=== PATIENT | female | born 1940 | race Caucasian/White ===

== ENCOUNTER 2018-03-20 18:49 | Inpatient (IN) | payer MEDICARE, BC ==
--- NOTE | 2018-03-20 19:09 | ED Physician Documentation ---
History of Present Illness - Stated complaint Stated Complaint: FEVER/CHILLS - Chief complaint Chief Complaint: General - History obtained from History obtained from: Patient - History of Present Illness Timing: Other (This is a 77-year-old woman who had an aortic valve replacement in late November of last year at the [facility]. I presume porcine or bovine since she is not on anticoagulation, but she does not know specifically. For the last 6 weeks she is felt sick. Her symptoms have varied but at the outset included lower abdominal pain but she has not had that in about 5 weeks. And she had a nonproductive cough but she related that to increase in her dose of lisinopril. More recently over the last 2 days she has had fevers and shaking chills. She states that she had a fever today up to 105 Fahrenheit, although I asked her if it was 105 or 100.5 and she vacillates. She continues to have a cough, nonproductive. She also has urinary frequency but no dysuria or flank pain. A couple of days after [place] she had an infected molar and was on perioperative antibiotics, the molar was removed.) Review of Systems Constitutional: reports: Fever, Chills, Fatigue Nose: denies: Rhinorrhea / runny nose Cardiac: denies: Chest pain / pressure, Palpitations Respiratory: reports: Cough. denies: Dyspnea GI: denies: Abdominal Pain, Nausea, Vomiting, Diarrhea : reports: Frequency. denies: Dysuria PD PAST MEDICAL HISTORY - Past Medical History Cardiovascular: Hypertension - Past Surgical History Past Surgical History: Yes - Present Medications Home Medications: Ambulatory Orders Medication Instructions Recorded Confirmed Furosemide [Lasix] 40 mg PO DAILY #20 tablet 10/12/14 03/20/18 Lisinopril 40 mg PO BID 10/12/14 03/20/18 Hydrocodone/Acetaminophen [[place] 1 each PO Q6H PRN #15 tablet 08/08/15 03/20/18 5-325 Tablet] Potassium Chloride [K-Dur] 20 meq PO DAILY 08/08/15 03/20/18 - Allergies Allergies/Adverse Reactions: Allergies Allergy/AdvReac Type Severity Reaction Status Date / Time No Known Drug Allergies Allergy Verified 03/20/18 19:04 - Social History Does the pt smoke?: No Smoking Status: Never smoker Does the pt drink ETOH?: Yes Does the pt have substance abuse?: No - POLST Patient has POLST: No PD ED PE NORMAL - Vitals Vital signs reviewed: Yes - General General: Alert and oriented X 3, No acute distress - HEENT HEENT: PERRL, EOMI, Ears normal - Neck Neck: Supple, no meningeal sign, No bony TTP - Cardiac Cardiac: RRR, Other (2/6 blowing decresecndo mmr at [facility]) - Respiratory Respiratory: No respiratory distress, Other (diminished bases L>R) - Abdomen Abdomen: Soft, Non tender - Back Back: No CVA TTP, No spinal TTP - Derm Derm: No rash - Extremities Extremities: No edema, No calf tenderness / cord - Neuro Neuro: Alert and oriented X 3, Normal speech Results - Vitals Vitals: Vital Signs - 24 hr 03/20/18 03/20/18 03/20/18 18:54 20:09 21:04 Temperature 37.0 C 37.2 C 36.5 C Heart Rate 91 76 87 Respiratory 18 18 18 Rate Blood Pressure 157/73 H 127/82 H 142/50 H O2 Saturation 98 98 99 Oxygen O2 Source Room air - Labs Labs: Laboratory Tests 03/20/18 03/20/18 03/20/18 19:30 19:30 19:30 WBC 16.1 H RBC 3.65 L Hgb 11.0 L Hct 32.6 L MCV 89.2 MCH 30.2 MCHC 33.9 RDW 13.3 Plt Count 274 MPV 6.8 L Neut # (Auto) 13.4 H Lymph # (Auto) 1.6 [place] # (Auto) 1.1 H Eos # (Auto) 0.0 Baso # (Auto) 0.1 Absolute Nucleated RBC 0.01 Nucleated RBC % 0.1 ESR 109 H Sodium 133 L Potassium 4.2 Chloride 101 Carbon Dioxide 21 Anion Gap 11.0 BUN 27 H Creatinine 1.1 H Estimated GFR (MDRD) 48 L Glucose 104 H Lactic Acid Calcium 9.4 Total Bilirubin 1.0 AST 34 ALT 35 Alkaline Phosphatase 102 C-Reactive Protein Total Protein 8.3 H Albumin 3.7 Globulin 4.6 H Albumin/Globulin Ratio 0.8 L Lipase 31 Urine Color Urine Clarity Urine pH Ur Specific [place] Urine Protein Urine Glucose (UA) Urine Ketones Urine Occult Blood Urine Nitrite Urine Bilirubin Urine Urobilinogen Ur Leukocyte Esterase Ur Microscopic Review Urine Culture Comments Influenza A (Rapid) Influenza B (Rapid) 03/20/18 03/20/18 03/20/18 19:30 19:30 19:30 WBC RBC Hgb Hct MCV MCH MCHC RDW Plt Count MPV Neut # (Auto) Lymph # (Auto) [place] # (Auto) Eos # (Auto) Baso # (Auto) Absolute Nucleated RBC Nucleated RBC % ESR Sodium Potassium Chloride Carbon Dioxide Anion Gap BUN Creatinine Estimated GFR (MDRD) Glucose Lactic Acid Calcium Total Bilirubin AST ALT Alkaline Phosphatase C-Reactive Protein 13.7 H Total Protein Albumin Globulin Albumin/Globulin Ratio Lipase Urine Color YELLOW Urine Clarity CLEAR Urine pH 5.5 Ur Specific [place] 1.020 Urine Protein NEGATIVE Urine Glucose (UA) NEGATIVE Urine Ketones NEGATIVE Urine Occult Blood TRACE-LYSE Urine Nitrite NEGATIVE Urine Bilirubin NEGATIVE Urine Urobilinogen 1 (NORMAL) Ur Leukocyte Esterase NEGATIVE Ur Microscopic Review NOT INDICATED Urine Culture Comments NOT INDICATED Influenza A (Rapid) Negative Influenza B (Rapid) Negative 03/20/18 19:50 WBC RBC Hgb Hct MCV MCH MCHC RDW Plt Count MPV Neut # (Auto) Lymph # (Auto) [place] # (Auto) Eos # (Auto) Baso # (Auto) Absolute Nucleated RBC Nucleated RBC % ESR Sodium Potassium Chloride Carbon Dioxide Anion Gap BUN Creatinine Estimated GFR (MDRD) Glucose Lactic Acid 1.1 Calcium Total Bilirubin AST ALT Alkaline Phosphatase C-Reactive Protein Total Protein Albumin Globulin Albumin/Globulin Ratio Lipase Urine Color Urine Clarity Urine pH Ur Specific [place] Urine Protein Urine Glucose (UA) Urine Ketones Urine Occult Blood Urine Nitrite Urine Bilirubin Urine Urobilinogen Ur Leukocyte Esterase Ur Microscopic Review Urine Culture Comments Influenza A (Rapid) Influenza B (Rapid) - Rads (name of study) 2v chest Radiology: EMP read contemporaneously (mild bronchial wall thickening, aortic valve replacement.) PD MEDICAL DECISION MAKING - ED course ED course: 77-year-old woman with history of to have her last year presents with progressive illness with fevers and chills after dental work about a month ago. She does have an elevated white blood cell count, sed rate, CRP. This is all concerning for endocarditis. I discussed the case by phone with Dr. Galvan at the [facility] who recommended admission here for monitoring of the blood cultures and a TTE. 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
[2018-03-20 19:36] LABS: BASOPHILS # (AUTO) 0.1 10^3/uL (0.0-0.1); BASOPHILS % (AUTO) 0.5 %; EOSINOPHILS % (AUTO) 0.2 %; LYMPHOCYTES # (AUTO) 1.6 10^3/uL (1.5-3.5); LYMPHOCYTES % (AUTO) 9.9 %; MEAN CORPUSCULAR HEMOGLOBIN 30.2 pg (27.0-31.0); MEAN CORPUSCULAR HGB CONC 33.9 g/dL (32.0-36.0); MEAN CORPUSCULAR VOLUME 89.2 fL (81.0-99.0); MEAN PLATELET VOLUME 6.8 fL (7.9-10.8); MONOCYTES # (AUTO) 1.1 10^3/uL (0.0-1.0); MONOCYTES % (AUTO) 6.6 %; NEUTROPHILS # (AUTO) 13.4 10^3/uL (1.5-6.6); NEUTROPHILS % (AUTO) 82.8 %; PLT - PLATELET COUNT 274 10^3/uL (130-450); RED BLOOD COUNT 3.65 10^6/uL (4.20-5.40); RED CELL DISTRIBUTION WIDTH 13.3 % (12.0-15.0); WHITE BLOOD COUNT 16.1 x10^3/uL (4.8-10.8)
[2018-03-20 19:37] LABS: BILIRUBIN,URINE NEGATIVE (NEGATIVE); GLUCOSE, URINE (UA) NEGATIVE (NEGATIVE); KETONES,URINE (UA) NEGATIVE (NEGATIVE); LEUKOCYTE ESTERASE, URINE NEGATIVE (NEGATIVE); NITRITE,URINE NEGATIVE (NEGATIVE); OCCULT BLOOD,URINE TRACE-LYSE (NEGATIVE); PH,URINE 5.5 PH (5.0-7.5); PROTEIN,URINE NEGATIVE (NEGATIVE); UROBILINOGEN,URINE 1 (NORMAL) E.U./dL (NORMAL)
[2018-03-20 19:40] LABS: CLARITY,URINE CLEAR (CLEAR)
[2018-03-20 19:50] LABS: ALBUMIN 3.7 g/dL (3.2-5.5); ALBUMIN/GLOBULIN RATIO 0.8 (1.0-2.2); CALCIUM 9.4 mg/dL (8.5-10.3); CREATININE 1.1 mg/dL (0.4-1.0); TOTAL PROTEIN 8.3 g/dL (6.7-8.2)
--- NOTE | 2018-03-20 19:53 | XRAY Report ---
Reason: cough Procedure Date: 03/20/2018 Accession Number: [id number] / [id number] Procedure: XR - Chest 2 View X-Ray CPT Code: 58235 FULL RESULT: EXAM: CHEST RADIOGRAPHY EXAM DATE: 03/20/2018 07:38 PM. CLINICAL HISTORY: Cough. COMPARISON: XR CHEST PA AND LAT 05/16/2011 11:44 AM. TECHNIQUE: 2 views. FINDINGS: Lungs/Pleura: No focal opacities evident. Mild bronchial thickening. No pleural effusion. No pneumothorax. Normal volumes. Mediastinum: Heart size upper normal. Aorta is tortuous. Interval placement of aortic valve prosthesis. Other: Degenerative changes of the thoracic spine. IMPRESSION: 1. Mild bronchial thickening which can be seen with bronchitis. No dense consolidation. 2. Interval placement of aortic valve prosthesis. RADIA
[2018-03-20] MEDS ORDERED: SODIUM CHLORIDE FLUSH 0.9% 10 ML SYRINGE IVP PRN (22:20)
[2018-03-20] MEDS ORDERED: SODIUM CHLORIDE 0.9% 1,000 ML IV SCH (23:00)
[2018-03-20] MEDS ORDERED: ACETAMINOPHEN 500 MG TABLET PO STA (23:05)
--- NOTE | 2018-03-20 23:47 | HISTORY & PHYSICAL EXAMINATION ---
Chief Complaint - Chief Complaint Chief Complaint: rigor, fever History of Present Illness - Admitted From Admitted From:: [facility] ED - History Obtained From History obtained from: patient - History of Present Illness HPI Comment/Other: Patient is a 77 y/o female who presented to the ED today with complain of rigors today. She reports a subjective fever as high as 103F at home. She reports a persistent dry cough but add that it has been going on for the past year and that she is on lisinopril. She denies chest pain, RADHA, abd pain, n/v/d. She normally sleeps using 3 pillows. Mainly for comfort than SOB. She does not have any lower extremity edema. She used to be on lasix prior to a TAVR but has since come off it. She underwent a TAVR in November 2017 at the [facility]. Her clinical research tech is Dr Galvan. Her clinical research tech was contacted from the ED and he advised to proceed with a TTE and await blood cultures for now. He advised that patient has known mitral regurgitation with a flailing mitral which should not be mistaken for a vegetation. She was fully awake and oriented X3 at the time of my visit. She was resting comfortably in bed. She denied any other complains or concerns. History - Past Medical History Cardiovascular: reports: Hypertension, Valve disorder (Aortic (s/p TAVR) and Mitral) Endocrine/Autoimmune: reports: Other (one parathyroid nodule extraction) MRSA Hx?: No - Past Surgical History General: reports: Other Ortho: reports: Other (Multiple fractures) Cardiovascular: reports: Valve replacement (TAVR) - Family & Social History Family History Comment/Other: Father: at 87 from natural causes. Mother: at 57 from cerebral hemorrhage. Brother: CABG X5 Living arrangement: At home - Substance History Use: Uses substance without health or social issues: Alcohol (occasionally/socially) - POLST Patient has POLST: Yes POLST Status: Full Code Meds/Allgy - Home Medications Home Medications: Ambulatory Orders Medication Instructions Recorded Confirmed Furosemide [Lasix] 40 mg PO DAILY #20 tablet 10/12/14 03/20/18 Lisinopril 40 mg PO BID 10/12/14 03/20/18 Hydrocodone/Acetaminophen [[place] 1 each PO Q6H PRN #15 tablet 08/08/15 03/20/18 5-325 Tablet] Potassium Chloride [K-Dur] 20 meq PO DAILY 08/08/15 03/20/18 - Allergies Allergies/Adverse Reactions: Allergies Allergy/AdvReac Type Severity Reaction Status Date / Time No Known Drug Allergies Allergy Verified 03/20/18 19:04 Review of Systems - Constitutional Constitutional: reports: Fever (rigors) - Eyes Eyes: denies: Pain, Blurred vision, Dipolpia - Ears, Nose & Throat Ears, Nose & Throat: denies: Ear pain, Hearing loss, Vertigo - Cardiovascular Cariovascular: denies: Irregular heart rate, Chest pain, Edema, Lightheadedness, Syncope, Exertional dyspnea - Respiratory Respiratory: reports: Cough (dry. on lisinopril). denies: Sputum production, Wheezing, Orthopnea, SOB at rest - Gastrointestinal Gastrointestinal: denies: Abdominal pain, Abdominal distention, Constipation, Diarrhea, Nausea, Vomiting - Genitourinary Genitourinary: denies: Dysuria, Frequency, Urgency, Hematuria - Musculoskeletal Musculoskeletal: denies: Muscle pain, Back pain, Muscle aches - Integumentary Integumentary: denies: Rash, Pruritis - Neurological Neurological: denies: General weakness, Focal weakness, Headache, Dizziness - Psychiatric Psychiatric: denies: Depression, Anxiety - Hematologic/Lymphatic Hematologic/Lymphatic: denies: Anemia, Bruising, Petechiae Prior Level of Functionality: Patient is very independent and able to perform activities of daily living Exam - Vital Signs Vital Signs: Vital Signs x48h Temp Pulse Resp BP Pulse Ox 03/20/18 23:00 36.7 C 99 20 136/106 H 03/20/18 21:04 36.5 C 87 18 142/50 H 99 03/20/18 20:09 37.2 C 76 18 127/82 H 98 03/20/18 18:54 37.0 C 91 18 157/73 H 98 - Physical Exam General Appearance: positive: No acute distress, Alert Eyes Bilateral: positive: Normal inspection, PERRL, EOMI ENT: positive: ENT inspection nml, No signs of dehydration Neck: positive: Nml inspection, Thyroid nml, No JVD Respiratory: positive: Chest non-tender, No respiratory distress, Breath sounds nml. negative: Wheezes, Rales, Rhonchi Cardiovascular: positive: Tachycardia, Diastolic murmur Abdomen: positive: Non-tender, No organomegaly, Nml bowel sounds, No distention Skin: positive: Color nml, No rash, Warm, Dry Extremities: positive: Non-tender, Full ROM, Nml appearance, No pedal edema Neurologic/Psychiatric: positive: Oriented x3 Sepsis Event Note (H) - Evaluation Sepsis Documentation Tip Sheet: SIRS. currently working up for sepsis Possible source of Sepsis: positive: Endocarditis - Sepsis Criteria Sepsis Criteria: Recorded Temperature greater than 38.3C or Less than 36C, Recorded Heart Rate greater than 90 bpm, WBC count greater than 12,000 or less than 4000 Conclusion/Plan - Problem List (1) Fever Conclusion/Plan: suspect endocarditis WBC 16, CRP elevated Blood cultures drawn 2D echo ordered Note: Patient has known MR with flailing valve (not vegetation) Will address fever with tylenol Qualifiers: Fever type: due to other condition Qualified Code(s): R50.81 - Fever presenting with conditions classified elsewhere (2) Hypertension Conclusion/Plan: Currently on lisinopril. Will continue Patient complaining of cough Advised to contact her clinical research tech (prescribing physician) for a possible switch to an ARB e.g losartan (3) Aortic regurgitation Conclusion/Plan: s/p TAVR - Lab Results Fish Bones: 03/20/18 19:30 03/20/18 19:30 Core Measures - Anticipated LOS I expect patient to be DC'd or transferred within 96 hours.: Yes - DVT/VTE - Prophylaxis VTE/DVT Device ordered at admit?: Yes VTE/DVT Prophylaxis med ordered at admit?: Yes
[2018-03-21] MEDS: SODIUM CHLORIDE FLUSH 0.9% 10 ML SYRINGE IVP SCH ×3 (00:47→17:56)
[2018-03-21 05:25] LABS: CALCIUM 8.9 mg/dL (8.5-10.3); CREATININE 1.3 mg/dL (0.4-1.0)
[2018-03-21 09:10] LABS: BASOPHILS # (AUTO) 0.1 10^3/uL (0.0-0.1); BASOPHILS % (AUTO) 0.7 %; EOSINOPHILS % (AUTO) 0.4 %; HGB - HEMOGLOBIN 9.6 g/dL (12.0-16.0); LYMPHOCYTES # (AUTO) 1.7 10^3/uL (1.5-3.5); LYMPHOCYTES % (AUTO) 13.5 %; MEAN CORPUSCULAR HEMOGLOBIN 31.1 pg (27.0-31.0); MEAN CORPUSCULAR VOLUME 88.9 fL (81.0-99.0); MEAN PLATELET VOLUME 6.8 fL (7.9-10.8); MONOCYTES # (AUTO) 0.9 10^3/uL (0.0-1.0); MONOCYTES % (AUTO) 7.3 %; NEUTROPHILS # (AUTO) 10.1 10^3/uL (1.5-6.6); NEUTROPHILS % (AUTO) 78.1 %; PLT - PLATELET COUNT 234 10^3/uL (130-450); RED BLOOD COUNT 3.09 10^6/uL (4.20-5.40); RED CELL DISTRIBUTION WIDTH 13.1 % (12.0-15.0); WHITE BLOOD COUNT 12.9 x10^3/uL (4.8-10.8)
[2018-03-21] MEDS: POLYETHYLENE GLYCOL 3350 17 GM PACKET PO SCH (09:15)
[2018-03-21] MEDS: ENOXAPARIN 40 MG/0.4 ML SYRINGE SUBQ SCH (09:15)
[2018-03-21] MEDS: ACETAMINOPHEN 325 MG TABLET PO PRN ×3 (09:40→22:13)
[2018-03-21] MEDS ORDERED: CEFEPIME 2 GM in SODIUM CHLORIDE 0.9% MINIBAG 100 ML IV SCH (10:00)
[2018-03-21] MEDS ORDERED: VANCOMYCIN PER PHARMACY 100 GM in SODIUM CHLORIDE 0.9% 250 ML IV SCH (10:00)
[2018-03-21] MEDS ORDERED: VANCOMYCIN 500 MG VIAL ONE (11:12)
[2018-03-21] MEDS: VANCOMYCIN INJ 1 GM, VANCOMYCIN INJ 500 MG in SODIUM CHLORIDE 0.9% 500 ML IV SCH (11:13)
[2018-03-21] MEDS ORDERED: NAPROXEN 250 MG TABLET PO PRN (11:24)
[2018-03-21] MEDS: ASPIRIN CHEW 81 MG TABLET PO SCH (13:14)
[2018-03-21] MEDS: SODIUM CHLORIDE 0.9% 1,000 ML IV SCH (14:55)
--- NOTE | 2018-03-21 16:13 | PROVIDER PROGRESS NOTE ---
Assessment/Plan - Problem List (1) Gram-positive cocci bacteremia Assessment/Plan: The patient had recent dental surgery, a molar was removed. She does report being on antibiotics for 5 days after the extraction and "a huge dose of something right before". She is now growing 4 out of 4 blood cultures with GPC. Will start iv antibiotics using Vanco and Zosyn. The Echo was done and a vegetation cannot be ruled out, she needs a JANEL for better visualization. There is no aortic regurg or paravalvular leak seen on the Echo, but the systolic gradient through the tissue leaflets is excessive, suggesting a problem, like obstruction from a vegetation on a leaflet impeding forward flow. I have reached out to to have her transferred to her Interventional TAVR [facility] there. The Echo images were pushed. She has been accepted in transfer by Dr Clarisa Galvan, but there are no beds there open currently. He advised using Vanco and Zosyn. The plan is for transfer tomorrow. Will draw daily blood cultures since these will need to be followed. The patient was updated with this plan and is very appreciative to be going to her TAVR center. (2) S/P TAVR (transcatheter aortic valve replacement) Assessment/Plan: The Echo was done today and a vegetation cannot be ruled out on the aortic valve due to incomplete clear visualization of the bioprosthetic leaflets; she needs a JANEL for better visualization. There is no aortic regurg or paravalvular leak of the TAVR seen on the Echo, but the systolic gradient through the tissue leaflets is excessive, suggesting a problem, like obstruction from a vegetation on a leaflet impeding forward flow. I have reached out to and she has been accepted in transfer by Dr Clarisa Galvan, but there are no beds there open currently. The plan is for transfer tomorrow. The patient was updated with this plan and is very appreciative to be going to her TAVR center. Continue daily ASA. (3) Junctional rhythm Assessment/Plan: Telemetry shows an intermittent junctional rhythm with loss of P waves, at a stable HR of 60's. No drop in BP or compliant of dizziness. It is unknown if she has had this in her past. This could be a sign of infection spreading to the crux of the heart near the AV node, related to the TAVR ring. A JANEL is needed to visualize that area. Continue telemetry. Avoid B-blockers, Cardizem, Verapamil or Dig. Will check EKG to document. If she has more of this rhythm or gets symptomatic from it, will move her to the ICU, place topical Zoll pacer patches on standby for percutaneous pacing, and she would need urgent transfer to the CCU. (4) Anemia Assessment/Plan: Since presenting to the ER, her Hgb has dropped from 11 to 9, with only 6 hours of iv hydration at 75 cc/hr. This is of concern since she could have hemolysis o f RBCs related to an infected or stenotic TAVR aortic valve. Will evaluate guiac stool, Iron panel, B12 and Folate levels. Replace if low. Monitor CBC daily. (5) ERICA (acute kidney injury) Assessment/Plan: Most likely this is from volume depletion secondary to fever, consider myoglobin-induce ERICA if she has hemolysis (see above). Will start iv hydration, since LVEF is normal on Echo done today. Monitor BMP daily. - Current Meds Current Meds: Current Medications Generic Name Dose Route Start Last Admin Trade Name Freq PRN Reason Stop Dose Admin Acetaminophen 650 mg 03/20/18 22:20 03/21/18 09:40 Tylenol PO 650 mg Q6HR PRN Administration Pain 1 to 4 Aspirin 81 mg 03/21/18 12:00 03/21/18 13:14 [place] Aspirin PO 81 mg DAILY DAYNA Administration Enoxaparin Sodium 40 mg 03/21/18 09:00 03/21/18 09:15 Lovenox SUBQ 40 mg DAILY DAYNA Administration Cefepime HCl 2 gm/ Sodium 100 mls @ 200 mls/hr 03/21/18 10:00 03/21/18 10:30 Chloride IV Infused Q12H DAYNA Infusion Vancomycin HCl 1 gm/ 500 mls @ 250 mls/hr 03/21/18 11:00 03/21/18 13:13 Vancomycin HCl 500 mg/ Sodium IV Infused Chloride Q24H DAYNA Infusion Sodium Chloride 1,000 mls @ 100 mls/hr 03/21/18 13:32 03/21/18 14:55 Normal Saline 0.9% IV 100 mls/hr .Q10H DAYNA Administration Polyethylene Glycol 17 gm 03/21/18 09:00 03/21/18 09:15 Miralax PO Not Given DAILY DAYNA Sodium Chloride 10 ml 03/21/18 01:00 03/21/18 09:15 Normal Saline Flush 0.9% IVP Not Given 0100,0900,1700 DAYNA - Lab Result Lab results reviewed: Yes Fish Bone Diagrams: 03/21/18 09:05 03/21/18 04:58 - EKG Results EKG Interpreted Independently: Yes EKG Comparison: Changed from prior EKG EKG Findings: NSR, 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 - Additional Planning My Orders: My Active Orders 03/21/18 10:00 Cefepime 2 gm Sodium Chloride 0.9% Minibag [Normal Saline 0.9% Minibag] 100 ml IV Q12H 03/21/18 11:00 Vancomycin Inj [Vancomycin] 1 gm Vancomycin Inj 500 mg Sodium Chloride 0.9% [Normal Saline 0.9%] 500 ml IV Q24H 03/21/18 11:24 Naproxen [Naprosyn] 250 mg PO DAILY PRN 03/21/18 12:00 Aspirin Chewable [[facility] [place] Aspirin] 81 mg PO DAILY 03/21/18 13:32 Sodium Chloride 0.9% [Normal Saline 0.9%] 1,000 ml IV 100 mls/hr 03/21/18 17:00 Saccharomyces Boulardii [Florastor] 250 mg PO BIDWM 03/21/18 19:00 CULTURE, BLOOD #1 [RM] Routine 03/21/18 Lunch Full Liquid Diet [DIET] 03/22/18 09:00 CULTURE, BLOOD #2 [RM] DAILY Subjective - Subjective Patient Reports: Other (Feeling rigors and chills, then hot and needed a ice pack.) Objective Vital Signs: Vital Signs - 24 hr 03/20/18 03/20/18 03/20/18 18:54 20:09 21:04 Temperature 37.0 C 37.2 C 36.5 C Heart Rate 91 76 87 Heart Rate [ Brachial] Respiratory 18 18 18 Rate Blood Pressure 157/73 H 127/82 H 142/50 H Blood Pressure [Left Brachial artery] Blood Pressure [Right Brachial artery] O2 Saturation 98 98 99 03/20/18 03/21/18 03/21/18 23:00 00:00 01:30 Temperature 36.7 C 37.6 C H Heart Rate 99 Heart Rate [ 114 H 98 Brachial] Respiratory 20 20 Rate Blood Pressure 136/106 H Blood Pressure [Left Brachial artery] Blood Pressure 120/82 H [Right Brachial artery] O2 Saturation 93 03/21/18 03/21/18 03/21/18 04:22 04:56 08:00 Temperature 37.2 C 37.0 C 36.6 C Heart Rate Heart Rate [ 77 68 Brachial] Respiratory 20 18 Rate Blood Pressure Blood Pressure [Left Brachial artery] Blood Pressure 120/87 H 118/58 L [Right Brachial artery] O2 Saturation 97 98 03/21/18 03/21/18 09:30 13:19 Temperature 37.2 C 36.8 C Heart Rate Heart Rate [ 76 Brachial] Respiratory 18 Rate Blood Pressure Blood Pressure 113/66 [Left Brachial artery] Blood Pressure [Right Brachial artery] O2 Saturation 98 Oxygen O2 Source Room air I&O (Last 24 Hrs): Intake and Output Totals x24h 03/19/18 03/20/18 03/21/18 23:59 23:59 23:59 Intake Total 2017.00 Output Total 1350 Balance 667.00 General: Alert, Oriented x3 HEENT: Mucous membr. moist/pink, Other (Cheeks flushed) Neck: Supple, No JVD, Other (No carotid bruit) Neuro: Alert, Non Focal Cardiovascular: Regular rate, Other (Very soft S1 and S2, 2/6 systolic murmur at base, no gallop or RV heave.) Respiratory: No respiratory distress, Breath sounds nml Abdomen: Soft, No tenderness, Other (Obese with pannus) Extremities: No cyanosis, No edema - Results Results: Laboratory Results WBC 12.9 x10^3/uL (4.8-10.8) H 03/21/18 09:05 RBC 3.09 10^6/uL (4.20-5.40) L 03/21/18 09:05 Hgb 9.6 g/dL (12.0-16.0) L 03/21/18 09:05 Hct 27.5 % (37.0-47.0) L 03/21/18 09:05 MCV 88.9 fL (81.0-99.0) 03/21/18 09:05 MCH 31.1 pg (27.0-31.0) H 03/21/18 09:05 MCHC 35.0 g/dL (32.0-36.0) 03/21/18 09:05 RDW 13.1 % (12.0-15.0) 03/21/18 09:05 Plt Count 234 10^3/uL (130-450) 03/21/18 09:05 MPV 6.8 fL (7.9-10.8) L 03/21/18 09:05 Neut # (Auto) 10.1 10^3/uL (1.5-6.6) H 03/21/18 09:05 Lymph # (Auto) 1.7 10^3/uL (1.5-3.5) 03/21/18 09:05 [place] # (Auto) 0.9 10^3/uL (0.0-1.0) 03/21/18 09:05 Eos # (Auto) 0.0 10^3/uL (0.0-0.7) 03/21/18 09:05 Baso # (Auto) 0.1 10^3/uL (0.0-0.1) 03/21/18 09:05 Absolute Nucleated RBC 0.00 x10^3/uL 03/21/18 09:05 Nucleated RBC % 0.0 /100WBC 03/21/18 09:05 ESR > 140 mm/Hr (0-30) H 03/21/18 09:05 Sodium 134 mmol/L (135-145) L 03/21/18 04:58 Potassium 4.1 mmol/L (3.5-5.0) 03/21/18 04:58 Chloride 102 mmol/L (101-111) 03/21/18 04:58 Carbon Dioxide 21 mmol/L (21-32) 03/21/18 04:58 Anion Gap 11.0 (6-13) 03/21/18 04:58 BUN 27 mg/dL (6-20) H 03/21/18 04:58 Creatinine 1.3 mg/dL (0.4-1.0) H 03/21/18 04:58 Estimated GFR (MDRD) 40 (>89) L 03/21/18 04:58 Glucose 117 mg/dL (70-100) H 03/21/18 04:58 Lactic Acid 1.1 mmol/L (0.5-2.2) 03/20/18 19:50 Calcium 8.9 mg/dL (8.5-10.3) 03/21/18 04:58 Total Bilirubin 1.0 mg/dL (0.2-1.0) 03/20/18 19:30 AST 34 IU/L (10-42) 03/20/18 19:30 ALT 35 IU/L (10-60) 03/20/18 19:30 Alkaline Phosphatase 102 IU/L (42-121) 03/20/18 19:30 C-Reactive Protein 13.4 mg/dL (0-1.0) H 03/21/18 09:05 Total Protein 8.3 g/dL (6.7-8.2) H 03/20/18 19:30 Albumin 3.7 g/dL (3.2-5.5) 03/20/18 19:30 Globulin 4.6 g/dL (2.1-4.2) H 03/20/18 19:30 Albumin/Globulin Ratio 0.8 (1.0-2.2) L 03/20/18 19:30 Lipase 31 U/L (22-51) 03/20/18 19:30 Urine Color YELLOW 03/20/18 19:30 Urine Clarity CLEAR (CLEAR) 03/20/18 19:30 Urine pH 5.5 PH (5.0-7.5) 03/20/18 19:30 Ur Specific [place] 1.020 (1.002-1.030) 03/20/18 19:30 Urine Protein NEGATIVE mg/dL (NEGATIVE) 03/20/18 19:30 Urine Glucose (UA) NEGATIVE mg/dL (NEGATIVE) 03/20/18 19:30 Urine Ketones NEGATIVE mg/dL (NEGATIVE) 03/20/18 19:30 Urine Occult Blood TRACE-LYSE (NEGATIVE) 03/20/18 19:30 Urine Nitrite NEGATIVE (NEGATIVE) 03/20/18 19:30 Urine Bilirubin NEGATIVE (NEGATIVE) 03/20/18 19:30 Urine Urobilinogen 1 (NORMAL) E.U./dL (NORMAL) 03/20/18 19:30 Ur Leukocyte Esterase NEGATIVE (NEGATIVE) 03/20/18 19:30 Ur Microscopic Review NOT INDICATED 03/20/18 19:30 Urine Culture Comments NOT INDICATED 03/20/18 19:30 Influenza A (Rapid) Negative (Negative) 03/20/18 19:30 Influenza B (Rapid) Negative (Negative) 03/20/18 19:30 Sepsis Event Note (H) - Evaluation Possible source of Sepsis: positive: Endocarditis - Sepsis Criteria Sepsis Criteria: Recorded Temperature greater than 38.3C or Less than 36C, Recorded Heart Rate greater than 90 bpm, WBC count greater than 12,000 or less than 4000
[2018-03-21] MEDS: PIPERACILLIN/TAZOBACTAM 3.375 GM in SODIUM CHLORIDE 0.9% MINIBAG 100 ML IV SCH (18:03)
[2018-03-21] MEDS: SACCHAROMYCES BOULARDII 250 MG CAPSULE PO SCH (18:03)
[2018-03-22] MEDS: PIPERACILLIN/TAZOBACTAM 3.375 GM in SODIUM CHLORIDE 0.9% MINIBAG 100 ML IV SCH ×4 (00:11→17:05)
[2018-03-22] MEDS: SODIUM CHLORIDE 0.9% 1,000 ML IV SCH ×2 (01:13→10:26)
[2018-03-22] MEDS: SODIUM CHLORIDE FLUSH 0.9% 10 ML SYRINGE IVP SCH ×3 (01:14→20:24)
[2018-03-22] MEDS: ACETAMINOPHEN 325 MG TABLET PO PRN ×4 (04:28→21:34)
[2018-03-22 05:54] LABS: BASOPHILS # (AUTO) 0.1 10^3/uL (0.0-0.1); BASOPHILS % (AUTO) 0.7 %; EOSINOPHILS # (AUTO) 0.2 10^3/uL (0.0-0.7); EOSINOPHILS % (AUTO) 1.7 %; HGB - HEMOGLOBIN 8.5 g/dL (12.0-16.0); LYMPHOCYTES # (AUTO) 1.5 10^3/uL (1.5-3.5); LYMPHOCYTES % (AUTO) 15.5 %; MEAN CORPUSCULAR HEMOGLOBIN 30.6 pg (27.0-31.0); MEAN CORPUSCULAR HGB CONC 34.2 g/dL (32.0-36.0); MEAN CORPUSCULAR VOLUME 89.6 fL (81.0-99.0); MEAN PLATELET VOLUME 6.9 fL (7.9-10.8); MONOCYTES # (AUTO) 0.9 10^3/uL (0.0-1.0); MONOCYTES % (AUTO) 9.3 %; NEUTROPHILS % (AUTO) 72.8 %; PLT - PLATELET COUNT 206 10^3/uL (130-450); RED BLOOD COUNT 2.78 10^6/uL (4.20-5.40); RED CELL DISTRIBUTION WIDTH 13.2 % (12.0-15.0); WHITE BLOOD COUNT 9.6 x10^3/uL (4.8-10.8)
[2018-03-22 06:20] LABS: CALCIUM 8.3 mg/dL (8.5-10.3); CREATININE 0.9 mg/dL (0.4-1.0)
[2018-03-22 06:33] LABS: FOLATE 11.52 ng/mL (5.90 - >24.8)
[2018-03-22] MEDS: ENOXAPARIN 40 MG/0.4 ML SYRINGE SUBQ SCH (08:21)
[2018-03-22] MEDS: SACCHAROMYCES BOULARDII 250 MG CAPSULE PO SCH ×2 (08:21→17:05)
[2018-03-22] MEDS: POLYETHYLENE GLYCOL 3350 17 GM PACKET PO SCH (08:21)
[2018-03-22] MEDS: ASPIRIN CHEW 81 MG TABLET PO SCH (08:21)
[2018-03-22] MEDS: VANCOMYCIN INJ 1 GM, VANCOMYCIN INJ 500 MG in SODIUM CHLORIDE 0.9% 500 ML IV SCH (10:26)
--- NOTE | 2018-03-22 19:28 | PROVIDER PROGRESS NOTE ---
Subjective - Prog Note Date Prog Note Date: 03/22/18 Prog Note Time: 19:24 - Subjective Subjective: no cp. she is sob and worried about her diuretics she took before her surgery. should she have them now? Current Medications - Current Medications Current Medications: Active Medications Acetaminophen (Tylenol) 650 mg PO Q4HR PRN PRN Reason: Pain 1 to 4 Last Admin: 03/22/18 17:30 Dose: 650 mg Aspirin ([place] Dann Aspirin) 81 mg PO DAILY [facility] Last Admin: 03/22/18 08:21 Dose: 81 mg Enoxaparin Sodium (Lovenox) 40 mg SUBQ DAILY [facility] Last Admin: 03/22/18 08:21 Dose: 40 mg Vancomycin HCl 1 gm/Vancomycin HCl 500 mg/ Sodium Chloride 500 mls @ 250 mls/hr IV Q24H [facility] Last Infusion: 03/22/18 12:27 Dose: Infused Sodium Chloride (Normal Saline 0.9%) 1,000 mls @ 100 mls/hr IV .Q10H [facility] Last Infusion: 03/22/18 17:05 Dose: 0 mls/hr Piperacillin Sod/Tazobactam (Sod 3.375 gm/ Sodium Chloride) 100 mls @ 200 mls/hr IV Q6H [facility] Last Admin: 03/22/18 17:05 Dose: 200 mls/hr Naproxen (Naprosyn) 250 mg PO DAILY PRN PRN Reason: PAIN Polyethylene Glycol (Miralax) 17 gm PO DAILY [facility] Last Admin: 03/22/18 08:21 Dose: 17 gm Saccharomyces Boulardii (Florastor) 250 mg PO BIDWM [facility] Last Admin: 03/22/18 17:05 Dose: 250 mg Sodium Chloride (Normal Saline Flush 0.9%) 10 ml IVP PRN PRN PRN Reason: NEEDED PER PROVIDER ORDERS Sodium Chloride (Normal Saline Flush 0.9%) 10 ml IVP 0100,0900,1700 [facility] Last Admin: 03/22/18 08:21 Dose: 10 ml Lisinopril 40 mg PO BID 10/12/14 Acetaminophen 500 mg PO DAILY PRN 03/21/18 Aspirin 81 mg PO DAILY 03/21/18 Naproxen 250 mg PO DAILY PRN 03/21/18 Objective - Vital Signs/Intake & Output Reviewed Vital Signs: Yes Vital Signs: Vital Signs x48h Temp Pulse Resp BP Pulse Ox 03/22/18 15:45 36.5 C 70 20 127/65 98 03/22/18 11:45 36.0 C L 84 20 115/58 L 98 Intake & Output: Intake & Output 03/19/18 03/20/18 03/21/18 03/22/18 23:59 23:59 23:59 23:59 Intake Total 3130.333 3681.667 Output Total 1625 2225 Balance 6113.321 1263.667 - Objective General Appearance: positive: No acute distress, Alert, Other (sitting up in chair eating.) Eyes Bilateral: positive: PERRL ENT: positive: Pharynx nml Neck: positive: Thyroid nml Respiratory: positive: Chest non-tender. negative: Wheezes, Rales, Rhonchi Cardiovascular: positive: Systolic murmur. negative: Regular rate & rhythm, Gallop/S4, Friction rub Abdomen: positive: Non-tender, No organomegaly, Nml bowel sounds, No distention Skin: positive: Warm, Dry Extremities: positive: Full ROM, No pedal edema Neurologic/Psychiatric: positive: Oriented x3, CN's nml (2-12), Motor nml - Lab Results Fish Bones: 03/22/18 05:33 03/22/18 05:33 Other Labs: Lab Results x24hrs 03/22/18 03/22/18 03/22/18 Range/Units 05:33 05:33 05:33 WBC 9.6 (4.8-10.8) x10^3/uL RBC 2.78 L (4.20-5.40) 10^6/uL Hgb 8.5 L (12.0-16.0) g/dL Hct 24.9 L (37.0-47.0) % MCV 89.6 (81.0-99.0) fL MCH 30.6 (27.0-31.0) pg MCHC 34.2 (32.0-36.0) g/dL RDW 13.2 (12.0-15.0) % Plt Count 206 (130-450) 10^3/uL MPV 6.9 L (7.9-10.8) fL Neut # (Auto) 7.0 H (1.5-6.6) 10^3/uL Lymph # (Auto) 1.5 (1.5-3.5) 10^3/uL [place] # (Auto) 0.9 (0.0-1.0) 10^3/uL Eos # (Auto) 0.2 (0.0-0.7) 10^3/uL Baso # (Auto) 0.1 (0.0-0.1) 10^3/uL Absolute Nucleated RBC 0.00 x10^3/uL Nucleated RBC % 0.0 /100WBC Sodium 134 L (135-145) mmol/L Potassium 3.8 (3.5-5.0) mmol/L Chloride 107 (101-111) mmol/L Carbon Dioxide 21 (21-32) mmol/L Anion Gap 6.0 (6-13) BUN 15 (6-20) mg/dL Creatinine 0.9 (0.4-1.0) mg/dL Estimated GFR (MDRD) 61 L (>89) Glucose 100 (70-100) mg/dL Calcium 8.3 L (8.5-10.3) mg/dL Iron 18 L (28-170) ug/dL TIBC 265 (250-450) ug/dL % Saturation 7 L (20-50) % Transferrin 189 L (192-382) mg/dL Vitamin B12 961 H (180-914) pg/mL Folate 11.52 (5.90 - >24.8) ng/mL ABX Reporting Has patient been on IV antibiotics over the past 48 hours?: Yes Sepsis Event Note (H) - Evaluation Possible source of Sepsis: positive: Endocarditis - Sepsis Criteria Sepsis Criteria: Recorded Temperature greater than 38.3C or Less than 36C, Recorded Heart Rate greater than 90 bpm, WBC count greater than 12,000 or less than 4000 Assessment/Plan - Problem List (1) Gram-positive cocci bacteremia Impression: In a patient who has a previous JULIETTE, fever to 38.8, and 4 out of 4 bottles for gram-positive cocci in pairs and chains. We must assume she has endocarditis but we do not have capability to do transesophageal echo. Because of the arrhythmias, I wonder if her mitral valve i s involved not the aortic valve this time. I have spoken to [facility] today. They accepted her yesterday, and reaccepted this morning. I have updated them on her arrhythmias, and blood cultures. They are waiting for a bed to open up. She will be a direct admission to CCU. Dr. Gastelum has accepted her. (2) S/P TAVR (transcatheter aortic valve replacement) Impression: The Echo was done 03/21 and a vegetation cannot be ruled out on the aortic valve due to incomplete clear visualization of the bioprosthetic leaflets; she needs a JANEL for better visualization. There is no aortic regurg or paravalvular leak of the TAVR seen on the Echo, but the systolic gradient through the tissue leaflets is excessive, suggesting a problem, like obstruction from a vegetation on a leaflet impeding forward flow. She is 3 liters positive but no CHF on exam. contacted 03/21 and 03/22 and she has been accepted in transfer by Dr Clarisa Galvan, as well as Dr. Gastelum today but there are no beds there open currently. The plan is for transfer as soon as bed available. The patient was updated with this plan and is very appreciative to be going to her TAVR center. Continue daily ASA. Stop IVF. (3) Junctional rhythm Assessment/Plan: Telemetry shows an intermittent junctional rhythm with loss of P waves, at a sta ble HR of 60's. No drop in BP or compliant of dizziness. It is unknown if she has had this in her past. Today sinus pause of 1.2 seconds. twice. no symptoms. BP stable. This could be a sign of infection spreading to the crux of the heart near the AV node, related to the TAVR ring. A JANEL is needed to visualize that area. Continue telemetry. Avoid B-blockers, Cardizem, Verapamil or Dig. Will check EKG to document. If she has more of this rhythm or gets symptomatic from it, will move her to the ICU, place topical Zoll pacer patches on standby for percutaneous pacing, and she would need urgent transfer to the CCU. (4) Anemia Assessment/Plan: Since presenting to the ER, her Hgb has dropped from 11 to 9, with only 6 hours of iv hydration at 75 cc/hr. This is of concern since she could have hemolysis of RBCs related to an infected or stenotic TAVR aortic valve. Laboratory Tests 03/22/18 03/22/18 03/22/18 05:33 05:33 05:33 Hgb 8.5 L Iron 18 L TIBC 265 % Saturation 7 L Transferrin 189 L Vitamin B12 961 H Folate 11.52 No retic count.
--- NOTE | 2018-03-22 22:14 | DISCHARGE SUMMARY ---
Discharge Summary Admit Date: 03/20/18 Discharge Date: 03/22/18 Discharging Provider: Dr. Barry Cisneros Primary Care Provider: Glynn Barron Code Status: Attempt Resuscitation Condition at Discharge: Stable Discharge Disposition: 02 Transfer Acute Care Hosp - DIAGNOSES Admission Diagnoses: Bacteremia, acute kidney injury, status post T AVR, fever with rigors Discharge Diagnoses with Status of Each Condition: 1.Infective endocarditis Patient appears to be clinically stable with relatively normal vital signs, and afebrile for the past 24 hours. She does have concerning findings on her echocardiogram which was read as inconclusive with respect to ruling out vegetations with some discrepancy in systolic flow leaving open the possibility of obstruction secondary to vegetation with recommendation to correlate clinically. Given her history of recent T AVR, followed by recent dental surgery, with elevated white count, fevers on admission, and violent rigors, infective endocarditis must be highly considered on the differential and she certainly meets criteria for the indication for a JANEL and to be followed by a cardiovascular team and likely infectious disease. She has had 4 blood cultures which have grown positive for alphahemolytic Streptococcus with final species identification pending. This was confirmed on both right and the left extremity as the source of blood culture collection. She has been accepted for transfer at the CV ICU at [facility] in [place]. 2.Junctional rhythm She has had periodic junctional rhythm with loss of P waves, with heart rates typically stable in the 60s however in the past 18 hours or so she has had a few brief episodes of pauses of less than 2 seconds. It is unclear if this has been noted in the past. She has been monitored here on telemetry and we have avoided beta blockers, Cardizem, or digoxin.She may need to have percutaneous pacing at the accepting facility if this continues. 3.Anemia Patient's labs are remarkable for a drop in hemoglobin from 11.0 on admission to 8.5 within 2 days without any bleeding. Her IV fluid amount does not correlate to this level of a drop and dilution is not likely as the only cause. Her labs today are indicative of both iron deficiency as well as B12 deficiency, and this should be supplemented however would not explain such a sudden drop. Would recommend further follow-up and monitoring at the accepting facility. - HPI History of Present Illness: The following is the HPI from the admitting physician: "Patient is a 77 y/o female who presented to the ED today with complain of rigors today. She reports a subjective fever as high as 103F at home. She reports a persistent dry cough but add that it has been going on for the past year and that she is on lisinopril. She denies chest pain, RADHA, abd pain, n/v/d. She normally sleeps using 3 pillows. Mainly for comfort than SOB. She does not have any lower extremity edema. She used to be on lasix prior to a TAVR but has since come off it. She underwent a TAVR in November 2017 at the [facility]. Her adjustment clerk is Dr Galvan. Her adjustment clerk was contacted from the ED and he advised to proceed with a TTE and await blood cultures for now. He advised that patient has known mitral regurgitation with a flailing mitral which should not be mistaken for a vegetation. She was fully awake and oriented X3 at the time of my visit. She was resting comfortably in bed. She denied any other complains or concerns." Dr. Lakhani - HOSPITAL COURSE Hospital Course: As stated above, patient was admitted with initially fever, elevated white blood cell counts,Initially 16.1 down to 9.6 from the date of admission. Also, she has been afebrile since 03/21/2018 at which point she had a T-max on admission of 38.8 C.Since the patient was admitted, she has been on IV vancomycin and Zosyn and she has improved clinically with the only exceptions being the junctional rhythm as discussed above. The findings on the echocardiogram, also concerning for infective endocarditis with patient being a candidate for transfer to facility with capability for JANEL as well as cardiology service and infectious disease service. She will be transferred to [facility] in [place] on 03/22/2018. - ALLERGIES Allergies/Adverse Reactions: Allergies Allergy/AdvReac Type Severity Reaction Status Date / Time lisinopril AdvReac Severe COUGH Verified 03/21/18 11:29 - MEDICATIONS Home Medications: Ambulatory Orders Medication Instructions Recorded Confirmed Lisinopril 40 mg PO BID 10/12/14 03/20/18 Acetaminophen 500 mg PO DAILY PRN 03/21/18 03/21/18 Aspirin 81 mg PO DAILY 03/21/18 03/21/18 Naproxen 250 mg PO DAILY PRN 03/21/18 03/21/18 - PHYSICAL EXAM AT DISCHARGE General Appearance: positive: No acute distress - LABS Result Diagrams: 03/22/18 05:33 03/22/18 05:33 - SEPSIS Possible source of Sepsis: Endocarditis Sepsis Criteria: Recorded Temperature greater than 38.3C or Less than 36C, Recorded Heart Rate greater than 90 bpm, WBC count greater than 12,000 or less than 4000 - TIME SPENT Time Spent in Discharge (Minutes): 31
[2018-03-22 22:56] VITALS: BP 138/70
== END 2018-03-22 22:55 | disposition short-term general hospital (02) | DRG 314 ==
LOC: ED 18:49 → MS2 22:20
PROVIDERS: ADMIT Internal Medicine; ATTEND Family Medicine Sports Medicine
DX: T82.6XXA Infection and inflammatory reaction due to cardiac valve prosthesis, initial encounter (principal); I33.0 Acute and subacute infective endocarditis; Z95.2 Presence of prosthetic heart valve; A40.8 Other streptococcal sepsis; Z86.19 Personal history of other infectious and parasitic diseases; R65.20 Severe sepsis without septic shock; N17.9 Acute kidney failure, unspecified; Y71.2 Prosthetic and other implants, materials and accessory cardiovascular devices associated with adverse incidents; Y83.8 Other surgical procedures as the cause of abnormal reaction of the patient, or of later complication, without mention of misadventure at the time of the procedure; Y83.2 Surgical operation with anastomosis, bypass or graft as the cause of abnormal reaction of the patient, or of later complication, without mention of misadventure at the time of the procedure; D50.9 Iron deficiency anemia, unspecified; E53.8 Deficiency of other specified B group vitamins; I49.8 Other specified cardiac arrhythmias; I07.1 Rheumatic tricuspid insufficiency; I10 Essential (primary) hypertension; E86.9 Volume depletion, unspecified; Z95.3 Presence of xenogenic heart valve; Z79.891 Long term (current) use of opiate analgesic
CPT/HCPCS: 36415; 71046; 80048; 80053; 80202; 81001; 81003; 81599; 82272; 82607; 82746; 83540; 83605; 83690; 84466; 85025; 85651; 86140; 87040; 87077; 87086; 87181; 87275; 87276; 93005; 93306; 99283; 99284

== ENCOUNTER 2018-03-22 22:57 | Outpatient (CLI) | payer MEDICARE, BC | END 2018-03-22 22:58 | disposition short-term general hospital (02) | LOC: EMS 22:57 | PROVIDERS: ATTEND Surgery | DX: I38 Endocarditis, valve unspecified (principal) | CPT/HCPCS: A0170; A0425; A0426; 81599 ==

== ENCOUNTER 2018-04-10 19:21 | Outpatient (CLI) | payer MEDICARE, BC | END 2018-04-10 19:22 | disposition critical access hospital (66) | LOC: EMS 19:21 | PROVIDERS: ATTEND Surgery | DX: R42 Dizziness and giddiness (principal) | CPT/HCPCS: A0425; A0429 ==

== ENCOUNTER 2018-04-10 19:48 | Emergency (ER) | payer MEDICARE, BC ==
--- NOTE | 2018-04-10 20:37 | ED Physician Documentation ---
History of Present Illness - Stated complaint Stated Complaint: DIZZY, SOA WITH EXERTION - Chief complaint Chief Complaint: Neuro - History obtained from History obtained from: Patient - History of Present Illness Timing: Today - Additonal information Additional information: 77-year-old female with a history of aortic stenosis who has had a Rodrick procedure and placement of an aortic valve. Has developed endocarditis and she is on a course of antibiotic she is on her second week of gentamicin and vancomycin. Today on the way into the [facility] for her antibiotic infusion she felt better than usual and was able to use her ski poles to walk into the [facility] clinic from a car. She is usually uses a walker and wheelchair. Today she felt well enough to do this however she did develop some shortness of breath by the time she got into the hospital. When she got home from the [facility] clinic she was sitting on her couch when she developed a sense of dizziness and lightheadedness. This lasted for almost 10- 15 minutes. She had some dimming of her vision and she is come to the hospital by ambulance. Her symptoms have resolved and she feels normal now Review of Systems Constitutional: denies: Fever, Chills, Myalgias Eyes: reports: Decreased vision (transient with this episode) Ears: denies: Ear pain Nose: denies: Rhinorrhea / runny nose, Congestion Throat: denies: Sore throat Cardiac: denies: Chest pain / pressure, Palpitations, Pedal edema, Calf pain Respiratory: reports: Dyspnea. denies: Cough, Hemoptysis, Wheezing GI: denies: Abdominal Pain, Nausea, Vomiting : denies: Dysuria, Frequency Skin: denies: Rash Musculoskeletal: denies: Neck pain, Back pain, Extremity pain Neurologic: denies: Generalized weakness, Focal weakness, Numbness PD PAST MEDICAL HISTORY - Past Medical History Cardiovascular: Hypertension, Valve disorder Endocrine/Autoimmune: Other - Past Surgical History Past Surgical History: Yes General: Other Ortho: Other Cardiovascular: Valve replacement - Present Medications Home Medications: Ambulatory Orders Medication Instructions Recorded Confirmed Aspirin 81 mg PO DAILY 03/21/18 04/13/18 Losartan [Cozaar] 75 mg PO DAILY 03/28/18 04/13/18 - Allergies Allergies/Adverse Reactions: Allergies Allergy/AdvReac Type Severity Reaction Status Date / Time lisinopril AdvReac Severe COUGH Verified 04/13/18 10:10 amlodipine AdvReac Dizziness Verified 04/13/18 10:10 - Social History Does the pt smoke?: No Smoking Status: Never smoker Does the pt drink ETOH?: Yes Does the pt have substance abuse?: No - POLST Patient has POLST: Yes POLST Status: Full Code PD ED PE NORMAL - Vitals Vital signs reviewed: Yes (hypertensive ) - General General: Alert and oriented X 3, No acute distress, Well developed/nourished - HEENT HEENT: Atraumatic, PERRL, EOMI - Neck Neck: Supple, no meningeal sign, No bony TTP - Cardiac Cardiac: RRR, Other (harsh 2/6 holosystolic murmer at LSB) - Respiratory Respiratory: No respiratory distress, Other (symetrcally diminished breath sounds. ) - Abdomen Abdomen: Soft, Non tender - Back Back: No CVA TTP, No spinal TTP - Derm Derm: Normal color, Warm and dry, No rash - Extremities Extremities: No deformity, No edema - Neuro Neuro: Alert and oriented X 3, metal sander 2-12 intact, No motor deficit, No sensory deficit, Normal speech Eye Opening: Spontaneous Motor: Obeys Commands Verbal: Oriented GCS Score: 15 - Psych Psych: Normal mood, Normal affect Results - Vitals Vitals: Oxygen O2 Source Room air - EKG (time done) 1957 Rate: Rate (enter#) (83) Rhythm: NSR QRS: LVH Compare to prior EKG: Changed from prior EKG (SPT 03-21-18 the anterior forces appear improved somewhat.) Computer interpretation: Agree with computer - Labs Labs: Microbiology 04/10/18 20:46 Blood Culture - Preliminary Blood NO GROWTH AFTER 2 DAYS 04/10/18 20:45 Blood Culture - Preliminary Blood NO GROWTH AFTER 2 DAYS Laboratory Tests 04/10/18 04/10/18 04/10/18 20:45 20:45 20:45 WBC 8.6 RBC 3.27 L Hgb 10.1 L Hct 29.3 L MCV 89.7 MCH 30.7 MCHC 34.3 RDW 13.9 Plt Count 277 MPV 7.4 L Neut # (Auto) 5.7 Lymph # (Auto) 1.4 L [place] # (Auto) 0.6 Eos # (Auto) 0.9 H Baso # (Auto) 0.0 Absolute Nucleated RBC 0.00 Nucleated RBC % 0.0 ESR Sodium 135 Potassium 4.0 Chloride 101 Carbon Dioxide 25 Anion Gap 9.0 BUN 25 H Creatinine 1.3 H Estimated GFR (MDRD) 40 L Glucose 98 Calcium 9.0 Total Bilirubin 0.8 AST 36 ALT 37 Alkaline Phosphatase 87 Troponin I 0.16 C-Reactive Protein B-Natriuretic Peptide Total Protein 7.8 Albumin 3.8 Globulin 4.0 Albumin/Globulin Ratio 1.0 Lipase 39 Urine Color Urine Clarity Urine pH Ur Specific [place] Urine Protein Urine Glucose (UA) Urine Ketones Urine Occult Blood Urine Nitrite Urine Bilirubin Urine Urobilinogen Ur Leukocyte Esterase Ur Microscopic Review Urine Culture Comments 04/10/18 04/10/18 04/10/18 20:45 20:45 20:45 WBC RBC Hgb Hct MCV MCH MCHC RDW Plt Count MPV Neut # (Auto) Lymph # (Auto) [place] # (Auto) Eos # (Auto) Baso # (Auto) Absolute Nucleated RBC Nucleated RBC % ESR 68 H Sodium Potassium Chloride Carbon Dioxide Anion Gap BUN Creatinine Estimated GFR (MDRD) Glucose Calcium Total Bilirubin AST ALT Alkaline Phosphatase Troponin I C-Reactive Protein 1.2 H B-Natriuretic Peptide 261 H Total Protein Albumin Globulin Albumin/Globulin Ratio Lipase Urine Color Urine Clarity Urine pH Ur Specific [place] Urine Protein Urine Glucose (UA) Urine Ketones Urine Occult Blood Urine Nitrite Urine Bilirubin Urine Urobilinogen Ur Leukocyte Esterase Ur Microscopic Review Urine Culture Comments 04/10/18 04/11/18 04/11/18 21:00 00:47 08:35 WBC RBC Hgb Hct MCV MCH MCHC RDW Plt Count MPV Neut # (Auto) Lymph # (Auto) [place] # (Auto) Eos # (Auto) Baso # (Auto) Absolute Nucleated RBC Nucleated RBC % ESR Sodium 137 Potassium 4.0 Chloride 99 L Carbon Dioxide 27 Anion Gap 11.0 BUN 24 H Creatinine 1.5 H Estimated GFR (MDRD) 34 L Glucose 107 H Calcium 9.5 Total Bilirubin AST ALT Alkaline Phosphatase Troponin I 0.19 C-Reactive Protein B-Natriuretic Peptide Total Protein Albumin Globulin Albumin/Globulin Ratio Lipase Urine Color YELLOW Urine Clarity CLEAR Urine pH 5.5 Ur Specific [place] 1.020 Urine Protein TRACE Urine Glucose (UA) NEGATIVE Urine Ketones NEGATIVE Urine Occult Blood TRACE-LYSE Urine Nitrite NEGATIVE Urine Bilirubin NEGATIVE Urine Urobilinogen 0.2 (NORMAL) Ur Leukocyte Esterase NEGATIVE Ur Microscopic Review NOT INDICATED Urine Culture Comments NOT INDICATED 04/11/18 04/11/18 08:35 08:35 WBC RBC Hgb Hct MCV MCH MCHC RDW Plt Count MPV Neut # (Auto) Lymph # (Auto) [place] # (Auto) Eos # (Auto) Baso # (Auto) Absolute Nucleated RBC Nucleated RBC % ESR Sodium Potassium Chloride Carbon Dioxide Anion Gap BUN Creatinine Estimated GFR (MDRD) Glucose Calcium Total Bilirubin AST ALT Alkaline Phosphatase Troponin I 0.22 C-Reactive Protein B-Natriuretic Peptide 351 H Total Protein Albumin Globulin Albumin/Globulin Ratio Lipase Urine Color Urine Clarity Urine pH Ur Specific [place] Urine Protein Urine Glucose (UA) Urine Ketones Urine Occult Blood Urine Nitrite Urine Bilirubin Urine Urobilinogen Ur Leukocyte Esterase Ur Microscopic Review Urine Culture Comments - Rads (name of study) 1 view chest Radiology: Prelim report reviewed (Impression: Moderate CHF pattern has developed. The recent prior examination had demonstrated a prosthetic aortic valve, which is not apparent on this radiograph.), EMP read indepedently, See rad report TTE Radiology: Prelim report reviewed (Conclusions 1. Mild concentric LVH with normal systolic function, EF 70%. The left atrium is severely dilated. Thickened mitral leaflets with at least moderate and possibly severe eccentric mild mitral regurgitation that is not well seen. Bioprosthetic aortic valve with possibly mild stenosis and no regurgitation borderline pulmonary hypertension. Compared to the images from 03/21/2018 mitral regurgitation seems to have worsened. The mitral valve is not seen well enough to exclude worsening structural abnormality compared to the prior study. Consider JANEL if clinically appropriate.), EMP read indepedently, See rad report Procedures - Bedside sono Bedside sono by EMP: With use of bedside ultrasound the heart is imaged the left ventricle appears to collapse more than 50%. - IVC sono (time) 2029 Bedside IVC sono: IVC measures (cm) (1.92), IVC collapsed c insp (cm) (1.11), Collapsibility index (0.42), Euvolemia PD MEDICAL DECISION MAKING - ED course Complexity details: reviewed old records, reviewed results, re-evaluated patient, considered differential, d/w patient ED course: 77 y/o female with a tavr aortic valve in place has developed endocarditis and she is on her 2nd week of antibiotic therapy. She was feeling improved today and did more activity than previously and she has developed some mild CHF. She is treated in the ED with IV lasix with improvement but her trop is elevated in the indeterminate range and this raises minimally over time. I sought admission here for observation and our hospitalist opined that she was inappropriate for admission here as she had developed a heart block with her mitral valve disease and would need JANEL for evaluation and we will not be able to do that here. Dr. Arslan Gray cardiology at [facility] was willing to accept the patient in transfer but there was not a bed availability and he recommended TTE a second dose of lasxi and calling back to the at about noon today. The patient is improved and is discharged home. She will follow-up with her infectious disease specialist and her document design specialist at the [facility] she leaves the emergency department here to have infusion done at the [facility] clinic. Departure - Departure Disposition: 01 Home, Self Care Clinical Impression: Congestive heart failure Dyspnea Qualifiers: Dyspnea type: shortness of breath Qualified Code(s): R06.02 - Shortness of breath Instructions: ED Dyspnea Shortness of Breath Follow-Up: Susan Barron MD [Primary Care Provider] - Comments: Follow-up with cardiology later this week, call them today for an appointment. Increase her diuretics from every third to every second day. Low- salt diet. Stay hydrated though. Continue with your antibiotic infusions at the [facility] clinic. Return as needed. Discharge Date/Time: 04/11/18 12:00
[2018-04-10 20:58] LABS: BASOPHILS % (AUTO) 0.6 %; EOSINOPHILS # (AUTO) 0.9 10^3/uL (0.0-0.7); EOSINOPHILS % (AUTO) 10.7 %; HGB - HEMOGLOBIN 10.1 g/dL (12.0-16.0); LYMPHOCYTES # (AUTO) 1.4 10^3/uL (1.5-3.5); LYMPHOCYTES % (AUTO) 16.3 %; MEAN CORPUSCULAR HEMOGLOBIN 30.7 pg (27.0-31.0); MEAN CORPUSCULAR HGB CONC 34.3 g/dL (32.0-36.0); MEAN CORPUSCULAR VOLUME 89.7 fL (81.0-99.0); MEAN PLATELET VOLUME 7.4 fL (7.9-10.8); MONOCYTES # (AUTO) 0.6 10^3/uL (0.0-1.0); MONOCYTES % (AUTO) 6.4 %; NEUTROPHILS # (AUTO) 5.7 10^3/uL (1.5-6.6); PLT - PLATELET COUNT 277 10^3/uL (130-450); RED BLOOD COUNT 3.27 10^6/uL (4.20-5.40); RED CELL DISTRIBUTION WIDTH 13.9 % (12.0-15.0); WHITE BLOOD COUNT 8.6 x10^3/uL (4.8-10.8)
[2018-04-10 21:04] LABS: ALBUMIN 3.8 g/dL (3.2-5.5); BILIRUBIN,TOTAL 0.8 mg/dL (0.2-1.0); CREATININE 1.3 mg/dL (0.4-1.0); TOTAL PROTEIN 7.8 g/dL (6.7-8.2)
--- NOTE | 2018-04-10 21:08 | XRAY Report ---
Reason: dyspnea Procedure Date: 04/10/2018 Accession Number: [id number] / [id number] Procedure: XR - Chest 1 View X-Ray CPT Code: 74921 FULL RESULT: EXAM: CHEST RADIOGRAPHY. EXAM DATE: 04/10/2018 08:54 PM. CLINICAL HISTORY: Shortness of breath on exertion. COMPARISON: Chest 2 view 03/20/2018 7:22 PM, chest angiogram 10/12/2014 11:40 AM. TECHNIQUE: 1 view. FINDINGS: Lungs/Pleura: Diffuse reticular interstitial opacity. Peribronchial thickening. Peribronchial cuffing. No significant consolidation, effusion, or definite pneumothorax. Mediastinum: Moderate to severe enlargement of the cardiac silhouette. Aortic stent graft prosthesis is not seen on this exam. Other: None. IMPRESSION: Moderate CHF pattern has developed. The recent prior examination had demonstrated a prosthesis of the aortic valve, which is not apparent on this radiograph. RADIA
[2018-04-10 21:12] LABS: BILIRUBIN,URINE NEGATIVE (NEGATIVE); GLUCOSE, URINE (UA) NEGATIVE (NEGATIVE); KETONES,URINE (UA) NEGATIVE (NEGATIVE); LEUKOCYTE ESTERASE, URINE NEGATIVE (NEGATIVE); NITRITE,URINE NEGATIVE (NEGATIVE); OCCULT BLOOD,URINE TRACE-LYSE (NEGATIVE); PH,URINE 5.5 PH (5.0-7.5); PROTEIN,URINE TRACE mg/dL (NEGATIVE); UROBILINOGEN,URINE 0.2 (NORMAL) E.U./dL (NORMAL)
[2018-04-10 21:14] LABS: CLARITY,URINE CLEAR (CLEAR)
[2018-04-10] MEDS: FUROSEMIDE 40 MG/4 ML VIAL IVP STA (21:57)
[2018-04-11 08:51] LABS: CALCIUM 9.5 mg/dL (8.5-10.3); CREATININE 1.5 mg/dL (0.4-1.0)
[2018-04-11] MEDS: FUROSEMIDE 40 MG/4 ML VIAL IVP STA (10:29)
[2018-04-11 10:31] VITALS: BP 145/83
--- NOTE | 2018-04-11 11:38 | ED Physician Documentation ---
ED Addendum - Addendum Addendum: 04/11/18 11:36The patient states she is feeling better this morning. Nursing notes reviewed feel a diuresis of 1850 mL overnight. Her troponin is essentially flat with minimal elevation gain over the 1210 hrs. Her BNP is essentially flat as well. Her lungs sound good at this time. She had an echo done this morning. I talked with cardiology at and we transferred the echo to them as well. In comparison her echo seems similar to most recent ones with some increased left atrial enlargement. Otherwise she seems stable. At this point we did not feel there was a continued need for transfer and she could be discharged with increased diuretics from every third to every second day and continuing her antibiotic infusions. The cardiology at will follow up with her over the course of this week.
== END 2018-04-11 12:00 | disposition home or self-care (01) ==
LOC: EDUNIT# → EDBD → ED 19:48
DX: I11.0 Hypertensive heart disease with heart failure (principal); I50.9 Heart failure, unspecified; Z95.2 Presence of prosthetic heart valve; Z79.82 Long term (current) use of aspirin
CPT/HCPCS: 36415; 71045; 80048; 80053; 81001; 81003; 83690; 83880; 84484; 85025; 85651; 86140; 87040; 87086; 93005; 93306; 96374; 96376; 99284; 99285

== ENCOUNTER 2018-04-13 09:52 | Emergency (ER) | payer MEDICARE, BC ==
--- NOTE | 2018-04-13 11:00 | ED Physician Documentation ---
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 She was diuresed with intravenous Lasix and an echo was obtained showing the TAVR with poor performance and unchanged from prior. Today her infectious disease specialist is concerned about dehydration as the patient's renal function has deteriorated over the last 2 days. Her creatinine is now up to 3.1 BUN is 49. They are concerned she may need some hydration. Patient states that her breathing is much better this morning that it than it has been in some time. Review of Systems Constitutional: denies: Fever Ears: denies: Ear pain Nose: denies: Congestion Throat: denies: Sore throat Respiratory: denies: Dyspnea, Cough GI: denies: Abdominal Pain, Nausea, Vomiting : denies: Dysuria, Frequency Skin: denies: Rash Musculoskeletal: denies: Neck pain, Back pain, Extremity pain, Extremity swelling Neurologic: denies: Generalized weakness, Focal weakness, Numbness PD PAST MEDICAL HISTORY - Past Medical History Cardiovascular: Hypertension, Valve disorder Endocrine/Autoimmune: Other - Past Surgical History Past Surgical History: Yes General: Other Ortho: Other Cardiovascular: Valve replacement - Present Medications Home Medications: Ambulatory Orders Medication Instructions Recorded Confirmed Aspirin 81 mg PO DAILY 03/21/18 04/13/18 Losartan [Cozaar] 75 mg PO DAILY 03/28/18 04/13/18 - Allergies Allergies/Adverse Reactions: Allergies Allergy/AdvReac Type Severity Reaction Status Date / Time lisinopril AdvReac Severe COUGH Verified 04/13/18 10:10 amlodipine AdvReac Dizziness Verified 04/13/18 10:10 - Social History Does the pt smoke?: No Smoking Status: Never smoker Does the pt drink ETOH?: Yes Does the pt have substance abuse?: No - POLST Patient has POLST: Yes POLST Status: Full Code PD ED PE NORMAL - Vitals Vital signs reviewed: Yes (hypertensive mild ) - General General: Alert and oriented X 3, No acute distress, Well developed/nourished - HEENT HEENT: Atraumatic, PERRL, EOMI - Neck Neck: Supple, no meningeal sign, No bony TTP - Cardiac Cardiac: RRR, Other (2/6 holosystolic murmer improved from prior visit with less harshness to the sound ) - Respiratory Respiratory: No respiratory distress - Abdomen Abdomen: Soft, Non tender - Back Back: No CVA TTP, No spinal TTP - Derm Derm: Normal color, Warm and dry, No rash - Extremities Extremities: No deformity, No edema - Neuro Neuro: Alert and oriented X 3, 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, No motor deficit, No sensory deficit, Normal speech Eye Opening: Spontaneous Motor: Obeys Commands Verbal: Oriented GCS Score: 15 - Psych Psych: Normal mood, Normal affect Results - Vitals Vitals: Vital Signs - 24 hr 04/13/18 04/13/18 04/13/18 10:06 11:15 12:08 Temperature 36.7 C Heart Rate 73 76 78 Respiratory 16 18 17 Rate Blood Pressure 157/84 H 142/81 H 131/86 H O2 Saturation 98 99 99 Oxygen O2 Source Room air Procedures - IVC sono (time) 1050 Bedside IVC sono: IVC measures (cm) (1.09), IVC collapsed c insp (cm) (complete), Dehydration (est 1 liter deficit), Other (This exam is a contrast to prior exams with failure. 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 I personally have been able to check this patient's inferior vena cava on her most recent emergency department visit and at that time she had a pump for full inferior vena cava today she has complete collapse with respi ration and the vessel fills only to 1.09 cm. She is administered a liter of saline. She has improvement in her IVC measurements and at the conclusion of treatment her vessel measures 1.47cm and collapses to 0.79cm consistent with euvolemic state. The patient's infectious disease nurse (SAAD) at the [facility] is contacted in the case and she indicates they have stopped the gentamycin and they will follow her BUN and CR. I have discussed management of the patient's CHF with daily weights and I have indicated to the patient that she will need to weigh herself daily and she will need to weigh herself when she gets home today and call this her "dry weight" with addition of torsemide for fluid retention. Departure - Departure Disposition: , Self Care Clinical Impression: ERICA (acute kidney injury), Dehydration Condition: Stable Instructions: ED Dehydration Follow-Up: Susan Barron MD [Primary Care Provider] - Comments: Today you were dehydrated on arrival to the emergency department and this will interfere with your kidney function. We have hydrated you and we have interrogated her inferior vena cava and it appears you are euvolemic or "right where you are supposed to be "with your fluids. Weigh yourself when you return home today and if you find that you are 4 pounds heavier one morning take your torsemide. 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 Follow-up with [facility] clinic today.`
[2018-04-13] MEDS ORDERED: SODIUM CHLORIDE 0.9% 1,000 ML IV ONE (11:05)
[2018-04-13 12:15] VITALS: BP 131/86
== END 2018-04-13 14:04 | disposition home or self-care (01) ==
LOC: ED 09:52
DX: N17.9 Acute kidney failure, unspecified (principal); E86.0 Dehydration; I10 Essential (primary) hypertension; Z95.2 Presence of prosthetic heart valve; Z79.82 Long term (current) use of aspirin
CPT/HCPCS: 99283; 99284

== ENCOUNTER 2018-04-25 13:19 | Outpatient (CLI) | payer MEDICARE, BC ==
[2018-04-25 19:53] LABS: BASOPHILS # (AUTO) 0.1 10^3/uL (0.0-0.1); BASOPHILS % (AUTO) 2.4 %; EOSINOPHILS # (AUTO) 0.4 10^3/uL (0.0-0.7); EOSINOPHILS % (AUTO) 6.2 %; HGB - HEMOGLOBIN 8.1 g/dL (12.0-16.0); LYMPHOCYTES # (AUTO) 0.9 10^3/uL (1.5-3.5); LYMPHOCYTES % (AUTO) 14.7 %; MEAN CORPUSCULAR HEMOGLOBIN 31.3 pg (27.0-31.0); MEAN CORPUSCULAR HGB CONC 35.5 g/dL (32.0-36.0); MEAN PLATELET VOLUME 7.5 fL (7.9-10.8); MONOCYTES # (AUTO) 0.6 10^3/uL (0.0-1.0); MONOCYTES % (AUTO) 9.4 %; NEUTROPHILS # (AUTO) 4.2 10^3/uL (1.5-6.6); NEUTROPHILS % (AUTO) 67.3 %; PLT - PLATELET COUNT 230 10^3/uL (130-450); RED BLOOD COUNT 2.59 10^6/uL (4.20-5.40); WHITE BLOOD COUNT 6.3 x10^3/uL (4.8-10.8)
[2018-04-25 20:09] LABS: ALBUMIN 3.7 g/dL (3.2-5.5); ALKALINE PHOSPHATASE 63 IU/L (42-121); ALT ALANINE AMINOTRANSFERASE 20 IU/L (10-60); AST ASPARTATE AMINOTRANSFERASE 35 IU/L (10-42); BILIRUBIN,TOTAL 0.8 mg/dL (0.2-1.0); BUN - BLOOD UREA NITROGEN 28 mg/dL (6-20); CALCIUM 9.3 mg/dL (8.5-10.3); CARBON DIOXIDE - CO2 25 mmol/L (21-32); CHLORIDE 98 mmol/L (101-111); CREATININE 1.8 mg/dL (0.4-1.0); GFR - MDRD 27 (>89); GLUCOSE 77 mg/dL (70-100); SODIUM 134 mmol/L (135-145); TOTAL PROTEIN 7.2 g/dL (6.7-8.2)
[2018-04-25 20:38] LABS: BILIRUBIN,DIRECT < 0.1 mg/dL (0.1-0.5)
== END 2018-04-25 23:59 | disposition home or self-care (01) ==
LOC: LAB.R 13:19
PROVIDERS: ATTEND Internal Medicine
DX: N17.9 Acute kidney failure, unspecified (principal); E34.9 Endocrine disorder, unspecified; I38 Endocarditis, valve unspecified
CPT/HCPCS: 80048; 80076; 83735; 85025

== ENCOUNTER 2023-01-21 20:51 | Outpatient (CLI) | payer MEDICARE, BC | END 2023-01-21 20:52 | disposition critical access hospital (66) | LOC: EMS 20:51 | DX: S01.511A Laceration without foreign body of lip, initial encounter (principal); S09.93XA Unspecified injury of face, initial encounter; W01.190A Fall on same level from slipping, tripping and stumbling with subsequent striking against furniture, initial encounter; Y93.01 Activity, walking, marching and hiking; Y92.008 Other place in unspecified non-institutional (private) residence as the place of occurrence of the external cause; Z79.01 Long term (current) use of anticoagulants | CPT/HCPCS: A0425; A0429 ==

== ENCOUNTER 2023-01-21 21:16 | Emergency (ER) | payer MEDICARE, BC ==
[2023-01-21] MEDS ORDERED: LIDOCAINE-EPINEPH-TETRACAINE 3 ML SYRINGE TOP STA (21:21)
[2023-01-21 21:33] LABS: BASOPHILS # (AUTO) 0.1 10^3/uL (0.0-0.1); BASOPHILS % (AUTO) 1.3 %; EOSINOPHILS # (AUTO) 0.4 10^3/uL (0.0-0.7); EOSINOPHILS % (AUTO) 4.7 %; HCT - HEMATOCRIT 38.3 % (37.0-47.0); HGB - HEMOGLOBIN 13.2 g/dL (12.0-16.0); LYMPHOCYTES # (AUTO) 1.1 10^3/uL (1.5-3.5); LYMPHOCYTES % (AUTO) 14.1 %; MEAN CORPUSCULAR HGB CONC 34.5 g/dL (32.0-36.0); MEAN PLATELET VOLUME 9.2 fL (7.9-10.8); MONOCYTES # (AUTO) 0.6 10^3/uL (0.0-1.0); MONOCYTES % (AUTO) 7.6 %; NEUTROPHILS # (AUTO) 5.4 10^3/uL (1.5-6.6); NEUTROPHILS % (AUTO) 71.5 %; PLT - PLATELET COUNT 202 10^3/uL (130-450); RED BLOOD COUNT 4.12 10^6/uL (4.20-5.40); RED CELL DISTRIBUTION WIDTH 12.9 % (12.0-15.0); WHITE BLOOD COUNT 7.5 x10^3/uL (4.8-10.8)
--- NOTE | 2023-01-21 21:41 | ED Physician Documentation ---
PD HPI HEAD INJURY - Stated complaint Stated Complaint: FALL/LIP LAC - Chief complaint Chief Complaint: Trauma Hd/Nk - History obtained from History obtained from: Patient - Additional information Additional information: Patient is an 82-year-old female presenting for evaluation after a ground-level fall and head injury. Patient states that she tripped over carpet falling forward and hitting her head. She is on Eliquis for A-fib. There was no LOC. She did sustain a laceration just below her lip as well as a small laceration to her inner lip. 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 No chest pain, shortness of air, abdominal symptoms. Review of Systems Constitutional: denies: Fever Cardiac: denies: Chest pain / pressure Respiratory: denies: Dyspnea GI: denies: Abdominal Pain Neurologic: reports: Head injury. denies: Syncope PD PAST MEDICAL HISTORY - Past Medical History Past Medical History: Yes Cardiovascular: Hypertension, Atrial fibrillation, Valve disorder Respiratory: None Endocrine/Autoimmune: Other GI: None CLINICAL BIOCHEMIST: None : None Psych: None Musculoskeletal: None Derm: None - Past Surgical History Past Surgical History: Yes General: Other Ortho: Other Cardiovascular: Valve replacement - Present Medications Home Medications: Ambulatory Orders Medication Instructions Recorded Confirmed Apixaban [Eliquis] 5 mg PO BID 01/21/23 01/21/23 Irbesartan [Avapro] 75 mg PO BID 01/21/23 01/21/23 Potassium Chloride 20 meq PO DAILY PRN 01/21/23 01/21/23 Torsemide 30 mg PO PRN PRN 01/21/23 01/21/23 amLODIPine [Norvasc] 5 mg PO DAILY 01/21/23 01/21/23 carvediloL [Coreg] 12.5 mg PO BID 01/21/23 01/21/23 - Allergies Allergies/Adverse Reactions: Allergies Allergy/AdvReac Type Severity Reaction Status Date / Time lisinopril AdvReac Severe COUGH Verified 01/21/23 21:20 amlodipine AdvReac Dizziness Verified 01/21/23 21:20 - Social History Does the pt smoke?: No Smoking Status: Never smoker Does the pt drink ETOH?: Yes Does the pt have substance abuse?: No - Immunizations Immunizations are current?: Yes - POLST Patient has POLST: Yes POLST Status: Full Code PD ED PE NORMAL - General General: Alert and oriented X 3, No acute distress, Well developed/nourished - HEENT HEENT: PERRL, EOMI, Moist mucous membranes, Pharynx benign, Other (Steri-Strips to nasal bridge, yellow bruising to left side of face, purple bruising to right side of face, 1 inch laceration below lip on the right; 0.2cm laceration to inner lip on mucosal surface). No: Atraumatic - Neck Neck: Supple, no meningeal sign, No bony TTP - Cardiac Cardiac: Other (Regular rate, irregular rhythm) - Respiratory Respiratory: No respiratory distress, Clear bilaterally - Abdomen Abdomen: Soft, Non tender, Non distended - Derm Derm: Warm and dry - Extremities Extremities: No edema - Neuro Neuro: Alert and oriented X 3, No motor deficit, No sensory deficit, Normal speech PD ED PE EXPANDED - HEENT HEENT Visual: 1 - laceration Results - Vitals Vitals: Vital Signs - 24 hr 01/21/23 01/21/23 01/21/23 21:20 22:00 23:00 Temperature 36.5 C Heart Rate 68 88 76 Respiratory 16 18 14 Rate Blood Pressure 128/95 H 147/74 H 148/87 H O2 Saturation 99 98 96 01/21/23 01/21/23 23:15 23:30 Temperature Heart Rate 76 74 Respiratory 14 17 Rate Blood Pressure 153/81 H O2 Saturation 96 98 Oxygen O2 Source Room air - Labs Labs: Laboratory Tests 01/21/23 01/21/23 21:29 21:29 WBC 7.5 RBC 4.12 L Hgb 13.2 Hct 38.3 MCV 93.0 MCH 32.0 H MCHC 34.5 RDW 12.9 Plt Count 202 MPV 9.2 Neut # (Auto) 5.4 Lymph # (Auto) 1.1 L Antelope # (Auto) 0.6 Eos # (Auto) 0.4 Baso # (Auto) 0.1 Absolute Nucleated RBC 0.00 Nucleated RBC % 0.0 Sodium 136 Potassium 4.4 Chloride 101 Carbon Dioxide 24 Anion Gap 11.0 BUN 20 Creatinine 1.2 Estimated GFR (MDRD) 43 L Glucose 100 Calcium 10.9 H Total Bilirubin 0.9 AST 23 ALT 17 Alkaline Phosphatase 93 Total Protein 7.4 Albumin 4.5 Globulin 2.9 Albumin/Globulin Ratio 1.6 Procedures - Laceration (location) R lower face Length in cm: 2.5 Wound type: Linear, Clean Neurovascular status: Sensory intact, Motor intact, Vascular intact Anesthesia: LET, Lidocaine 1% Skin layer closure: Size #-0 - enter number (5), Sutures - enter # (6) Other: Patient tolerated well, No complications, Neurovascular intact, Tetanus booster given PD Medical Decision Making - ED course Complexity details: reviewed results, re-evaluated patient, d/w patient, d/w family ED course: Patient is an 82-year-old female presenting for evaluation after a ground-level fall at home with a head injury. She is on Eliquis. She does have a laceration just below her lip. She does also have a small laceration to the mucosal neftaly face of her lip. CT head and C-spine were obtained and reviewed and without significant findings. CBC and chemistries also reviewed. Lip laceration was repaired. Tetanus booster was given as patient is unsure of her last one. Patient counseled on wound care instructions as well as need to return for suture removal. She appears to be ambulatory at her baseline here. No deficits. Patient counseled on concerning symptoms to return for. Departure - Departure Disposition: 01 Home, Self Care Clinical Impression: Head injury, Facial laceration, Chronic atrial fibrillation Condition: Stable Instructions: ED Head Injury Closed, ED Laceration Facial Sutr Tape Comments: The CT scans of your head and your neck do not show any injuries from your fall such as bleeding or broken bone. You do have a laceration just below your lip that was closed with 6 stitches. These should be removed in approximately 5 days. You do have a small cut on the inside of your mouth that at this time does not require sutures. I would recommend sticking with softer foods Until it heals. Forms: PCP List Discharge Date/Time: 01/22/23 00:12
[2023-01-21 21:47] LABS: ALBUMIN 4.5 g/dL (3.2-5.5); ALBUMIN/GLOBULIN RATIO 1.6 (1.0-2.2); BILIRUBIN,TOTAL 0.9 mg/dL (0.2-1.0); CALCIUM 10.9 mg/dL (8.5-10.3); CREATININE 1.2 mg/dL (0.6-1.3); POTASSIUM 4.4 mmol/L (3.5-4.5); TOTAL PROTEIN 7.4 g/dL (6.4-8.9)
[2023-01-21] MEDS ORDERED: TETANUS/DIPHTHERIA/PERTUSSIS 0.5 ML SYRINGE IM ONE (22:38)
--- NOTE | 2023-01-21 22:39 | CT Report ---
PROCEDURE: HEAD WO INDICATIONS: fall on eliquis TECHNIQUE: Noncontrast 4.5 mm thick angled axial sections acquired from the foramen magnum to the vertex. For r adiation dose reduction, the following was used: automated exposure control, adjustment of mA and/or kV according to patient size. COMPARISON: None. FINDINGS: Image quality: Excellent. The ventricular system and cortical sulci demonstrate atrophy, consistent for patient's stated age. There are areas of hypodensity in the periventricular and subcortical white matter. There is no acut e intra or extra-axial fluid collection. No acute hemorrhage, mass lesion or midline shift. Brainst em is unremarkable. Globes are symmetrical. Sinuses demonstrate mucus retention cyst versus lobe in the right maxillary s inus. Osseous structures are intact. IMPRESSION: 1. No acute intracranial process. 2. Mild to moderate atrophy and chronic microvascular ischemic changes. Reviewed by: Rosanna Dalal MD on 01/21/2023 10:37 PM PST Approved by: Rosanna Dalal MD on 01/21/2023 10:37 PM PST Station ID: [id number]
--- NOTE | 2023-01-21 22:40 | CT Report ---
PROCEDURE: CERVICAL SPINE WO INDICATIONS: fall on eliquis TECHNIQUE: Noncontrast 3 mm thick sections acquired from the skull base to the T4 level. Sagittal and coronal r eformats were then constructed. For radiation dose reduction, the following was used: automated exp osure control, adjustment of mA and/or kV according to patient size. COMPARISON: CT head 01/21/2023 FINDINGS: Image quality: Excellent. Bones: No fractures or dislocations. Visualized superior ribs are intact. Multilevel degenerative changes. Soft tissues: Prevertebral soft tissues are normal in thickness. No paravertebral hematomas. No ap ical pneumothoraces. IMPRESSION: No visualized fracture. Reviewed by: Rosanna Dalal MD on 01/21/2023 10:39 PM PST Approved by: Rosanna Dalal MD on 01/21/2023 10:39 PM PST Station ID: [id number]
[2023-01-21] MEDS ORDERED: LIDOCAINE 1%-EPI 1:100000 20 ML MDV SUBQ STA (23:39)
[2023-01-22 00:11] VITALS: BP 153/81; O2SAT 98
== END 2023-01-22 00:12 | disposition home or self-care (01) ==
LOC: EDUNIT# → ED 21:16
DX: S09.90XA Unspecified injury of head, initial encounter (principal); S01.81XA Laceration without foreign body of other part of head, initial encounter; W01.0XXA Fall on same level from slipping, tripping and stumbling without subsequent striking against object, initial encounter; I48.20 Chronic atrial fibrillation, unspecified; Z79.01 Long term (current) use of anticoagulants
CPT/HCPCS: 12011; 36415; 80053; 85025; 90471; 93005; 99283; 99284